=== PATIENT | female | born 1970 | race Caucasian/White ===

== ENCOUNTER → 2016-08-23 | Outpatient (CLI) | payer OTHER ==
[~2016-08-23] VITALS: Ht 167.6 cm; Wt 73.9 kg
[~2016-08-23] MED LIST: ADVIL200 MG PO; AUGMENTIN875 MG PO; BACTRIM,SEPT1 TABLET PO; DELTASONE20 M1 PO; Ecotrin PO; FEOSOL325 MG PO; MUCINEX600 MG PO; NAPROSYN500 MG PO; NOHOMEMEDS; PERCOCET 5/31 TABLET PO; PERCOCET 7.51 TABLET PO; Protonix PO; TENORMIN25 MG PO; VENTOLIN HFA18 GM IH; VICODIN 5-3001 EACH PO; ZOFRAN4 MG PO
[2016-08-23 14:33] LABS: EOSINOPHIL (%) 1.2 % (0-5); EOSINOPHIL COUNT 0.1 K/uL (0-0.3); HEMATOCRIT 46.6 % (36.0-46.0); IMMATURE GRANULOCYTE (%) 0.4 % (0.0-0.7); INSTRUMENT ABS NEUTROPHIL CT 5.1 K/uL; LYMPHOCYTE COUNT 1.9 K/uL (1.0-2.8); MCH 34.2 PG (29.0-34.0); MCHC 34.8 G/DL (30.0-36.0); MCV 98.5 FL (83-99); MEAN PLAT.VOLUME 11.6 uM^3 (9.5-12.4); MONOCYTE (%) 6.7 % (3-12); MONOCYTE COUNT 0.5 K/uL (0-0.8); NEUTROPHIL (%) 66.6 % (45-76); NEUTROPHIL COUNT 5.1 K/uL (1.8-6.4); PLATELET COUNT 185 K/uL (156-360); RBC DIS.WIDTH-CV 12.2 % (11.8-14.6); RBC DIS.WIDTH-SD 44.6 % (39-53); RED BLOOD COUNT 4.73 M/uL (3.80-5.20); WHITE BLOOD COUNT 7.7 K/uL (4.1-10.2)
[2016-08-23 14:46] LABS: PROTHROMBIN TIME 10.6 (9.2-11.2); PTT 36.2 (25-32)
== END | disposition home or self-care (01) ==
LOC: AMB 13:21
PROVIDERS: Anesthesiology
DX: J98.11 Atelectasis (principal); J98.4 Other disorders of lung; I10 Essential (primary) hypertension; F41.8 Other specified anxiety disorders; E66.9 Obesity, unspecified; Z82.3 Family history of stroke; Z82.49 Family history of ischemic heart disease and other diseases of the circulatory system; Z87.891 Personal history of nicotine dependence; Z68.26 Body mass index [BMI] 26.0-26.9, adult
CPT/HCPCS: 71010; 76001; 85025; 85610; 85730; 87070; 87102; 87116; 87205; 87206; 87278; 88108; 88305; 94640; J2250; J2310; J3010

== ENCOUNTER 2016-11-09 23:31 | Inpatient (IN) | payer OTHER ==
[~2016-11-09] VITALS: Ht 167.6 cm; Wt 76.6 kg
[2016-11-10 00:35] LABS: EOSINOPHIL (%) 0.4 % (0-5); IMMATURE GRANULOCYTE (%) 0.4 % (0.0-0.7); INSTRUMENT ABS NEUTROPHIL CT 7.5 K/uL; LYMPHOCYTE COUNT 1.9 K/uL (1.0-2.8); MCH 35.9 PG (29.0-34.0); MCHC 35.3 G/DL (30.0-36.0); MCV 101.7 FL (83-99); MEAN PLAT.VOLUME 11.2 uM^3 (9.5-12.4); MONOCYTE (%) 4.1 % (3-12); MONOCYTE COUNT 0.4 K/uL (0-0.8); NEUTROPHIL (%) 75.7 % (45-76); NEUTROPHIL COUNT 7.5 K/uL (1.8-6.4); PLATELET COUNT 191 K/uL (156-360); RBC DIS.WIDTH-CV 12.3 % (11.8-14.6); RBC DIS.WIDTH-SD 46.4 % (39-53); RED BLOOD COUNT 4.23 M/uL (3.80-5.20); WHITE BLOOD COUNT 9.9 K/uL (4.1-10.2)
[2016-11-10 00:43] LABS: D-DIMER ELISA < 150.00 ng/mLDDU (<230)
[2016-11-10 00:46] LABS: CHLORIDE 106 mEq/L (99-109); POTASSIUM 2.8 mEq/L (3.7-5.4); SODIUM 141 mEq/L (136-147)
[2016-11-10 00:49] LABS: GLUCOSE 124 mg/dL (70-99)
[2016-11-10 00:50] LABS: ANION GAP 13 MEQ/L (2-14)
[2016-11-10 00:51] LABS: TOTAL BILIRUBIN 0.3 mg/dL (0.0-1.0)
[2016-11-10 00:52] LABS: ALKALINE PHOSPHATASE 81 IU/L (3-129); GFR ESTIMATE (CALCULATED) > 59 mL/min/; SERUM ETHYL ALCOHOL 154 mg/dL
[2016-11-10 00:54] LABS: UREA NITROGEN (BUN) 9 mg/dL (9-23)
[2016-11-10 00:55] LABS: TROP-I INTERPRETATION NEGATIVE; TROPONIN-I < 0.01 ng/mL (0.0-0.30)
[2016-11-10 01:02] LABS: QUANTITATIVE HCG < 4.0 MIU/ML
[2016-11-10 05:08] VITALS: BP 126/68
[2016-11-10 07:36] VITALS: BP 132/85; BP 32/85
[2016-11-10 10:35] LABS: ANION GAP 12 MEQ/L (2-14); CHLORIDE 109 MEQ/L (99-109); GFR ESTIMATE (CALCULATED) > 59 mL/min/; GLUCOSE 132 mg/dL (70-99); SAMPLE HEMOLYSIS CHECK 0; SAMPLE ICTERIC CHECK 0; SAMPLE LIPEMIA CHECK 0; SODIUM 143 MEQ/L (136-147); UREA NITROGEN (BUN) 4 mg/dL (9-23)
[2016-11-10 10:40] LABS: POTASSIUM 3.9 MEQ/L (3.7-5.4)
[2016-11-10 12:00] VITALS: BP 133/74
[2016-11-10] MEDS ORDERED: MICROZIDE12.5 M1 PO (12:20)
[2016-11-10] MEDS ORDERED: MOTRIN800 MG PO (12:20)
[2016-11-10] MEDS ORDERED: INCRUSE ELLI62.5 MCG IH (12:21)
[2016-11-10] MEDS ORDERED: SYMBICORT60 INHALAT IH (12:21)
[2016-11-10 16:23] VITALS: BP 133/76
[2016-11-10 20:36] VITALS: BP 132/76
[2016-11-10 23:54] VITALS: BP 129/71
[2016-11-11 03:55] VITALS: BP 159/74
[2016-11-11 06:39] LABS: HEMATOCRIT 40.8 % (36.0-46.0); MCH 36.8 PG (29.0-34.0); MCV 104.9 FL (83-99); PLATELET COUNT 187 K/uL (156-360); RBC DIS.WIDTH-CV 12.9 % (11.8-14.6); RBC DIS.WIDTH-SD 50.1 % (39-53); RED BLOOD COUNT 3.89 M/uL (3.80-5.20); WHITE BLOOD COUNT 12.4 K/uL (4.1-10.2)
[2016-11-11 07:09] LABS: ANION GAP 8 MEQ/L (2-14); CHLORIDE 110 MEQ/L (99-109); GFR ESTIMATE (CALCULATED) > 59 mL/min/; GLUCOSE 127 mg/dL (70-99); POTASSIUM 4.7 MEQ/L (3.7-5.4); SAMPLE HEMOLYSIS CHECK 0; SAMPLE ICTERIC CHECK 0; SAMPLE LIPEMIA CHECK 0; SODIUM 141 MEQ/L (136-147); UREA NITROGEN (BUN) 6 mg/dL (9-23)
[2016-11-11 07:59] VITALS: BP 147/87
[2016-11-11 12:09] VITALS: BP 143/78
[2016-11-11 15:35] VITALS: BP 158/82
[2016-11-11 18:17] LABS: C DIFF TOXIN NEGATIVE (NEGATIVE)
[2016-11-11 18:33] LABS: PROBE CHECK PASS; SPECIMEN PROCESSING CONTROL PASS
[2016-11-11 19:10] VITALS: BP 176/81
[2016-11-11 23:10] VITALS: BP 145/76
[2016-11-12 02:40] VITALS: BP 142/83
[2016-11-12 05:32] LABS: MCH 35.4 PG (29.0-34.0); MCHC 33.5 G/DL (30.0-36.0); MCV 105.5 FL (83-99); MEAN PLAT.VOLUME 11.8 uM^3 (9.5-12.4); PLATELET COUNT 194 K/uL (156-360); RBC DIS.WIDTH-CV 12.9 % (11.8-14.6); RBC DIS.WIDTH-SD 50.4 % (39-53); RED BLOOD COUNT 3.79 M/uL (3.80-5.20); WHITE BLOOD COUNT 12.3 K/uL (4.1-10.2)
[2016-11-12 05:48] LABS: ANION GAP 8 MEQ/L (2-14); CHLORIDE 108 MEQ/L (99-109); GFR ESTIMATE (CALCULATED) > 59 mL/min/; GLUCOSE 124 mg/dL (70-99); POTASSIUM 3.9 MEQ/L (3.7-5.4); SAMPLE HEMOLYSIS CHECK 0; SAMPLE ICTERIC CHECK 0; SAMPLE LIPEMIA CHECK 0; SODIUM 140 MEQ/L (136-147); UREA NITROGEN (BUN) 7 mg/dL (9-23)
[2016-11-12 08:52] VITALS: BP 145/77
[2016-11-12 10:49] LABS: ERTH.SED.RATE 4 MM/HR (0-20)
[2016-11-12 11:00] VITALS: BP 178/92
[2016-11-12] MEDS ORDERED: CEFDINIR300 MG PO (12:05)
[2016-11-12] MEDS ORDERED: NICOTINE PATCH1 EAC1 TD (12:08)
[2016-11-12] MEDS ORDERED: FLONASE16 G1 BOTH NARES (12:09)
[2016-11-12] MEDS ORDERED: PREDNISONE10 M1 PO (12:10)
[2016-11-12] MEDS ORDERED: AERONEB GO NEB1 EACH MC (12:11)
[2016-11-12] MEDS ORDERED: DUONEB 2.5-0.5 M3 ML AEROSOL (12:12)
[2016-11-12] MEDS ORDERED: BUTALB-APAP-CA1 EACH PO (12:12)
[2016-11-12 16:16] VITALS: BP 135/70
[2016-11-12 19:51] VITALS: BP 185/88
[2016-11-13 00:37] VITALS: BP 184/84
[2016-11-13 05:36] VITALS: BP 178/86
[2016-11-13 08:31] VITALS: BP 156/84
[2016-11-13 12:41] VITALS: BP 120/61
== END 2016-11-13 13:46 | disposition home or self-care (01) | DRG 871 ==
LOC: EME → EDBD 23:31 → EME 23:31 → EDOF 11-10 03:02 → 3EAST 11-10 03:02 → ENRESERV 11-10 03:05 → 3EAST 11-10 04:52
PROVIDERS: Emergency Medicine; Hospitalist
DX: A41.9 Sepsis, unspecified organism (principal); J44.0 Chronic obstructive pulmonary disease with (acute) lower respiratory infection; J18.9 Pneumonia, unspecified organism; E87.2 Acidosis; J44.1 Chronic obstructive pulmonary disease with (acute) exacerbation; J45.41 Moderate persistent asthma with (acute) exacerbation; E87.6 Hypokalemia; F31.9 Bipolar disorder, unspecified; G43.909 Migraine, unspecified, not intractable, without status migrainosus; N39.3 Stress incontinence (female) (male); F17.200 Nicotine dependence, unspecified, uncomplicated; F10.10 Alcohol abuse, uncomplicated; Y90.6 Blood alcohol level of 120-199 mg/100 ml; R19.7 Diarrhea, unspecified
CPT/HCPCS: 71010; 71020; 71275; 74177; 80048; 80053; 82010; 83605; 83880; 84484; 84702; 85025; 85027; 85379; 85651; 87040; 87493; 93005; 94010; 94640; 94640 76; 94644; 99202; 99281; 99285; G0480; J0456; J0696; J1100; J1644; J2920; J2930; J7030; J7040; J7050; J7644

== ENCOUNTER 2016-12-13 21:56 | Observation (INO) | payer OTHER ==
[~2016-12-13] VITALS: Ht 170.2 cm; Wt 77.7 kg
[~2016-12-13 21:56] MED LIST changes: +AERONEB GO NEB1 EACH MC; +BUTALB-APAP-CA1 EACH PO; +CEFDINIR300 MG PO; +DUONEB 2.5-0.5 M3 ML AEROSOL; +FLONASE16 G1 BOTH NARES; +INCRUSE ELLI62.5 MCG IH; +MICROZIDE12.5 M1 PO; +MOTRIN800 MG PO; +NICOTINE PATCH1 EAC1 TD; +PREDNISONE10 M1 PO; +SYMBICORT60 INHALAT IH
[2016-12-13 23:05] LABS: EOSINOPHIL COUNT 0.1 K/uL (0-0.3); HEMATOCRIT 41.1 % (36.0-46.0); IMMATURE GRANULOCYTE (%) 0.3 % (0.0-0.7); INSTRUMENT ABS NEUTROPHIL CT 3.5 K/uL; LYMPHOCYTE COUNT 2.2 K/uL (1.0-2.8); MCH 36.2 PG (29.0-34.0); MCHC 35.5 G/DL (30.0-36.0); MEAN PLAT.VOLUME 11.5 uM^3 (9.5-12.4); MONOCYTE (%) 7.2 % (3-12); MONOCYTE COUNT 0.5 K/uL (0-0.8); NEUTROPHIL (%) 55.7 % (45-76); NEUTROPHIL COUNT 3.5 K/uL (1.8-6.4); PLATELET COUNT 179 K/uL (156-360); RBC DIS.WIDTH-CV 11.6 % (11.8-14.6); RBC DIS.WIDTH-SD 44.1 % (39-53); RED BLOOD COUNT 4.03 M/uL (3.80-5.20); WHITE BLOOD COUNT 6.2 K/uL (4.1-10.2)
[2016-12-13 23:12] LABS: D-DIMER ELISA < 150.00 ng/mLDDU (<230)
[2016-12-13 23:13] LABS: CHLORIDE 102 mEq/L (99-109); POTASSIUM 3.3 mEq/L (3.7-5.4); SODIUM 139 mEq/L (136-147)
[2016-12-13 23:15] LABS: GLUCOSE 101 mg/dL (70-99)
[2016-12-13 23:16] LABS: ANION GAP 12 MEQ/L (2-14)
[2016-12-13 23:19] LABS: GFR ESTIMATE (CALCULATED) > 59 mL/min/
[2016-12-13 23:20] LABS: UREA NITROGEN (BUN) 8 mg/dL (9-23)
[2016-12-13 23:25] LABS: TROP-I INTERPRETATION NEGATIVE; TROPONIN-I 0.01 ng/mL (0.0-0.30)
[2016-12-14 03:06] VITALS: BP 139/79
[2016-12-14 06:08] LABS: TROP-I INTERPRETATION NEGATIVE; TROPONIN-I < 0.01 ng/mL (0.0-0.30)
[2016-12-14 09:35] VITALS: BP 120/58
[2016-12-14 11:59] VITALS: BP 135/70
[2016-12-14] MEDS ORDERED: LEVAQUIN750 MG PO (12:21)
[2016-12-14] MEDS ORDERED: DUONEB 2.5-0.5 M3 ML AEROSOL (12:33)
[2016-12-14 13:26] LABS: TROP-I INTERPRETATION NEGATIVE; TROPONIN-I < 0.01 ng/mL (0.0-0.30)
[2016-12-14] MEDS ORDERED: NICOTINE PATCH1 EAC1 TD (16:00)
[2016-12-14 16:05] VITALS: BP 128/72
== END 2016-12-14 18:34 | disposition home or self-care (01) ==
LOC: EME 21:56 → EDOF 12-14 01:36 → ENRESERV 12-14 01:37 → 5WEST 12-14 02:48
PROVIDERS: Hospitalist; Physician Assistant
DX: R07.9 Chest pain, unspecified (principal); E87.6 Hypokalemia; F17.210 Nicotine dependence, cigarettes, uncomplicated; Z82.49 Family history of ischemic heart disease and other diseases of the circulatory system; Z87.898 Personal history of other specified conditions; Z90.710 Acquired absence of both cervix and uterus; Z88.8 Allergy status to other drugs, medicaments and biological substances
CPT/HCPCS: 71020; 71275; 80048; 84484; 85025; 85379; 93005; 93306; 94640; 94640 76; 99202; 99281; 99285; G0378; J1650; J1885; J2270; J7030